=== PATIENT | male | born 1960 | race Caucasian/White ===

== ENCOUNTER 2025-03-12 12:32 | Emergency (ER) | payer OTHER, SELFPAY ==
[2025-03-12 12:33] VITALS: BP 156/93
--- NOTE | 2025-03-12 13:16 | ED.GENMED ---
History of Present Illness
General
Chief Complaint: Male Genito-Urinary Symptoms
Source: patient
Exam Limitations: none
Time Seen by Provider: 03/12/25 13:15
History of Present Illness
History of Present Illness:
See MDM
Past History
Past History
ED Past Medical History: Asthma, Hypercholesterolemia and Other (BPH)
Social History
Tobacco: Non-smoker
Alcohol: None
Phy Exam
Physical Exam
Physical Exam:
See MDM
Course
Orders/Labs/Results
Orders:
Orders
03/12/25 13:24
Urinalysis Reflex To Culture Urgent
Date Specimen was Collected: 03/12/25
Time Specimen was Collected: 13:23
03/12/25 13:32
CT Abd/pel Without Iv Or Oral Urgent
Comment:
Reason For Exam: b/l flank pain
03/12/25 13:44
Complete Blood Count/With Diff Urgent
Comprehensive Metabolic Panel Urgent
Abnormal Lab Results
03/12/25
13:44
RBC 4.38 L 10^6/uL
(4.70-6.10)
MCV 94.1 H fL
(80.0-94.0)
MCH 32.6 H pg
(27.0-31.0)
03/12/25 13:44
03/12/25 13:44
Vital Signs
Initial and Last Documented VS:
Initial Vital Signs
Temp Pulse Resp BP Pulse Ox
97.9 F 62 18 156/93 99
03/12/25 12:33 03/12/25 12:33 03/12/25 12:33 03/12/25 12:33 03/12/25 12:33
Last Documented Vital Signs
Temp Pulse Resp BP Pulse Ox
97.9 F 62 16 130/76 100
03/12/25 12:33 03/12/25 15:00 03/12/25 15:00 03/12/25 15:00 03/12/25 15:00
MDM/Problems Addressed
Differential Diagnosis Includes:
HPI and MDM Narrative:
65-year-old male presenting with burning sensation when he urinates. This is associated with hesitancy and difficulty passing urine. He does admit to a recent weight loss in the past few months. He does complain of testicular and penile pain
although he denies injury. He also complains of flank pain which he attributes to kidney pain. He denies any evidence of hematuria. It seems that the symptoms have been going on for 2 months
He states he has been on antibiotics recently for the symptoms but they have not helped. He has followed up with urology in the past and has presumed BPH
Bedside bladder scan shows no evidence of urinary retention
Physical exam
General: Well appearing and non-toxic
HEENT: protecting airway
Neck: appears supple
CV: No evidence of cyanosis
Resp: No accessory muscle use
Abd: Non-distended. Soft and nontender
: No skin erythema or rash noted
Extremities: No deformities
Neuro: alert
Psych: Normal affect
Skin: Intact
Problems Addressed including Acute and Chronic Conditions affecting care:
1. Dysuria
Acuity: acute
Prognosis: stable
Details: Will obtain urinalysis and basic blood work
2. Flank pain
Acuity: acute
Prognosis: stable
Details: Will obtain CT to rule out any evidence of kidney stones
Updates
Urinalysis and blood work are negative but CT shows concern for cystitis. Patient states he has been feeling better in the past few days. We discussed treating likely prostatitis with Levaquin. He has urology follow-up on Tuesday. He wants to
talk to the urologist before starting antibiotics. Will provide printout of CT report, blood work and a copy of the CT on CD
Differential Diagnosis (but not limited to): Prostatitis, UTI, cystitis, BPH
Testing considered: Renal ultrasound
Drug therapy (if applicable): OTC meds, please see d/c instruction regarding Rx drugs
Amount and/or Complexity of Data Reviewed
Clinical info obtained from: Patient
External data reviewed: N/A
Labs I independently reviewed (but not limited to): Urinalysis negative
Radiology: The CT scan was personally and independently reviewed. In addition, official CT report reviewed.
Pulse Ox: not hypoxic
EKG independently reviewed: N/A
[employer]: N/A
Critical Care: N/A
Risk of Complication:
Social Determinants of health: Good social support
Discussed with other providers: N/A
Escalation of Care includes Admit/Obs: After being observed in the Emergency Department, pt stable for discharge.
Occasional wrong word or 'sound a like' substitutions may have occurred due to the inherent limitations of voice recognition software. Read the chart carefully and recognize, using context, where substitutions have occurred.
*Pulse Oximetry
SaO2: 99
Oxygen Mode of Delivery: Room air
Patient hypoxic: no
*Critical Care Note
Total Time (30-74mins, 75-104mins- exclusive of procedures): Not Applicable
ED Attending Note
-
Portions of this chart may have been created with voice recognition software.� Occasional wrong word or��sound alike� substitutions may have occurred due to the inherent limitations of voice recognition software.
Discharge Plan
Departure
Patient Disposition: Home (Routine Discharge)
Date of Disposition: 03/12/25
Time of Disposition: 15:30
Patient with high blood pressure during this ER visit?: No
Discharge Problem:
Dysuria
Referrals:
Lucinda Crooks MD [Family Provider, Family Practice]
Activity Restrictions/Additional Instructions:
Please return for any worsening symptoms.
You may return at any time if you have further concerns.
Please keep your urology follow-up on Tuesday and discuss your symptoms.
Thank you for choosing [facility].
Interventions
Interventions:
*Risk Screen - Suicide Last Done: 03/12/25 12:33
*General Assessment Last Done: 03/12/25 13:33
*Neglect/Abuse Screening Last Done: 03/12/25 12:33
*ED- Fall Risk Assessment Last Done: 03/12/25 13:33
*ED COVID-19 Vaccine History Last Done: 03/12/25 13:33
ED-Male Genitourinary Assessment Last Done: 03/12/25 13:35
Discharge Date and Time
Print Language: BARBADIAN
[2025-03-12 13:33] VITALS: BMI 23.7
[2025-03-12 13:36] LABS: Urine Character Clear (Clear)
[2025-03-12 13:45] VITALS: BP 162/73
[2025-03-12 13:54] LABS: Hematocrit 41.2 % (39.0-52.0); Hemoglobin 14.3 g/dL (13.0-18.0); Mean Corp Hgb Conc. 34.7 g/dL (33.0-37.0); Mean Corpuscular Volume 94.1 fL (80.0-94.0); Nucleated Red Blood Cells % 0 % (-); Platelet Count 227 10^3/uL (130-400); Red Cell Dist. Width 12.3 % (11.5-14.5)
[2025-03-12 14:00] VITALS: BP 148/85
[2025-03-12 14:12] LABS: ALT (SGPT) 21 U/L (0-50); AST (SGOT) 23 U/L (17-59); Albumin 4.4 g/dl (3.5-5.0); Alkaline Phosphatase 60 U/L (38-126); Blood Urea Nitrogen 10 mg/dl (9-20); Calcium 9.2 mg/dl (8.4-10.2); Carbon Dioxide 27 mmol/L (22-30); Chloride 107 mmol/L (98-107); Estimated Creatinine Clearance 62 ml/min; Glucose 95 mg/dl (70-99); Potassium 4.1 mmol/L (3.5-5.1); Sodium 138 mmol/L (135-145); Total Protein 6.8 g/dl (6.3-8.2); eGFR > 60.00
[2025-03-12 15:00] VITALS: BP 130/76
--- NOTE | 2025-03-12 15:21 | EDRN ---
Dr. Lucas in room w/ pt at this time.
== END 2025-03-12 15:54 | disposition home or self-care (01) ==
LOC: EMR 12:32
PROVIDERS: EMERGENCY PHYSICIAN Student in an Organized Health Care Education/Training Program; FAMILY PHYSICIAN Family Medicine
DX: R30.0 Dysuria (principal); R39.11 Hesitancy of micturition; R10.9 Unspecified abdominal pain; N50.819 Testicular pain, unspecified; E78.00 Pure hypercholesterolemia, unspecified; J45.909 Unspecified asthma, uncomplicated; N40.0 Benign prostatic hyperplasia without lower urinary tract symptoms; Z88.1 Allergy status to other antibiotic agents
CPT/HCPCS: 99283; 51798; 74176; 80053; 81003; 85025